=== PATIENT | female | born 1925 | race Caucasian/White ===

== ENCOUNTER → 2016-10-10 | Outpatient (CLI) | payer MEDICARE, OTHER | LOC: MW.CHORTHO 10:00 | PROVIDERS: ATTEND Physician Assistant | DX: M25.551 Pain in right hip (principal); M16.11 Unilateral primary osteoarthritis, right hip | CPT/HCPCS: 99203 ==

== ENCOUNTER → 2016-11-10 | Outpatient (CLI) | payer MEDICARE, OTHER | LOC: MW.CHORTHO 08:00 | PROVIDERS: ATTEND Physician Assistant | DX: M16.11 Unilateral primary osteoarthritis, right hip (principal); M70.61 Trochanteric bursitis, right hip | CPT/HCPCS: 20610; G0463; J1040 ==

== ENCOUNTER 2016-12-02 22:51 | Emergency (ER) | payer MEDICARE, OTHER ==
--- NOTE | 2016-12-02 23:33 | EDM.PDOC ---
ED HPI GENERAL MEDICAL PROBLEM - General Stated Complaint: HIP PAIN Time Seen by Provider: 12/02/16 23:30 Source of Information: Reports: Patient History Limitations: Reports: No Limitations - History of Present Illness INITIAL COMMENTS - FREE TEXT/NARRATIVE: HISTORY AND PHYSICAL: History of present illness: [89-year-old female on Coumadin complaining of right hip soreness. Patient was trying to close a door to her house so she could latch it. In order to do this she bumped her right hip against the door. Her right hip area has been sore since. She is able to ambulate without difficulty. She has no swelling in that area. She does have a history of arthritis. Denies spinal pain and has no other injury] Review of systems: As per history of present illness and below otherwise all systems reviewed and negative. Past medical history: As per history of present illness and as reviewed below otherwise noncontributory. Surgical history: As per history of present illness and as reviewed below otherwise noncontributory. Social history: No reported history of drug or alcohol abuse. Family history: As per history of present illness and as reviewed below otherwise noncontributory. Physical exam: Minimal soft tissue tenderness in the distribution of the right hip no bony tenderness. Stable nontender pelvis. No suprapubic tenderness at the pubic bone area. Normal painless range of motion of bilateral lower extremities with no shortening or external rotation. Soft compartments no ecchymosis HEENT: Normocephalic, atraumatic, pupils normal and symmetrical, supple neck, no meningismus, normal color Lungs: Normal and symmetrical chest wall excursion bilateral with no tachypnea or increased work of breathing, grossly normal chest exam Heart: No tachycardia in triage Abdomen: Normal-appearing, nondistended, no visible mass or asymmetry Pelvis: Normal-appearing Genitourinary: Deferred Rectal exam: Deferred Extremities: Atraumatic, normal use and range of motion, no visible evidence of gross neurovascular compromise Neuro: Awake, alert, oriented. Normal and appropriate mental status. Cranial nerves grossly unremarkable. Motor function normal. Nonfocal neurologic exam. Diagnostics: [] Therapeutics: [] Impression: [] Plan: [Signs and symptoms consistent with mild contusion with no ecchymosis. The patient is on Coumadin no evidence of clinical bleeding or hematoma. She is able to stand airway and ambulate at her baseline on reevaluation after x-rays were negative. No further workup or treatment indicated at this time. Patient and daughter agree with outpatient follow-up and strict return precautions given ] Definitive disposition and diagnosis as appropriate pending reevaluation and review of above. Right Hip Pain Score (Numeric/FACES): 10 - Related Data Allergies Allergy/AdvReac Type Severity Reaction Status Date / Time Influenza Virus Vaccines Allergy Cannot Verified 12/02/16 23:34 Remember morphine Allergy Anaphylactic Verified 12/02/16 23:34 Shock Home Meds: Home Meds Diltiazem [Cardizem] 60 mg PO ONETIME PRN 12/02/16 [History] Hydrochlorothiazide/Lisinopril [Lisinopril-HCTZ 20-25 MG] 1 cap PO DAILY [History] Potassium Chloride 10 meq PO DAILY 12/02/16 [History] Warfarin Sodium [Warfarin Sodium] 0.5 cap PO DAILY 12/02/16 [History] ED ROS GENERAL - Review of Systems Review Of Systems: See Below (History of present illness) ED EXAM, GENERAL - Physical Exam Exam: See Below (History of present illness) Course - Vital Signs Last Recorded V/S: Last Vital Signs Temp 36.9 C 12/02/16 23:23 Pulse 79 12/03/16 01:30 Resp 18 12/03/16 01:30 BP 173/70 H 12/03/16 01:30 Pulse Ox 99 12/03/16 01:30 - Orders/Labs/Meds Orders: Active Orders 24 hr Category Date Time Status Hip Min 2V or 3V w Pelvis Rt [CR] Stat Exams 12/02/16 23:33 Taken Departure - Departure Time of Disposition: 00:46 Disposition: Home, Self-Care 01 Condition: good Clinical Impression: Contusion of right hip, Osteoarthritis of hips, bilateral - Discharge Information Instructions: Hip Pain Referrals: Blue Gomes MD [Primary Care Provider] - Forms: ED Department Discharge Additional Instructions: Have a contusion of your hip. This means a bruise. You may evolve some "black and blue "areas where he bumped her hip against the door your x-rays do not show any fracture however they do show significant osteoarthritis and chronic bony changes of both hips. Because you can walk without difficulty, no further imaging or CAT scan is indicated tonight. If you find you have worsening pain or difficulty ambulating return to the emergency department for CAT scan of your pelvis to rule out an occult or hidden fracture If the area is sore apply an ice pack tonight. Follow-up with your tomorrow and return immediately for new severe or worsening symptoms. Use Tylenol as needed for soreness - My Orders Last 24 Hours: My Active Orders 12/02/16 23:33 Hip Min 2V or 3V w Pelvis Rt [CR] Stat - Assessment/Plan Last 24 Hours: My Active Orders 12/02/16 23:33 Hip Min 2V or 3V w Pelvis Rt [CR] Stat
[2016-12-03 02:14] VITALS: BP 173/70
--- NOTE | 2016-12-05 10:34 | CR ---
EXAM DATE: 12/02/16 PATIENT'S AGE: 89 Patient: BABAK IRENE Facility: [place], [place] Site . Site : [id number] Study: XRay Pelvis Right HIP [id number]/10/2017 12:03:27 AM Ordering Physician: Mason Randhawa Final Report: INDICATION: Pelvic and hip pain TECHNIQUE: Pelvis radiograph 1 view Hip radiograph 2 views COMPARISON: 10/04/2016. FINDINGS: Right greater than left hip degenerative changes. No acute fracture. Lower lumbar spine degenerative disk disease. IMPRESSION: 1. No acute fracture in the pelvis or right hip. Severe right hip osteoarthritis. Dictated by Jayjay Rivas MD @ 12/03/2016 12:07:19 AM Dictated by: Jayjay Rivas MD @ 12/03/2016 00:07:26 (Electronic Signature) Report Signed by Proxy. [facility]
== END 2016-12-03 01:30 | disposition home or self-care (01) ==
LOC: MW.ED 22:51
DX: S70.01XA Contusion of right hip, initial encounter (principal); M16.0 Bilateral primary osteoarthritis of hip; Z88.5 Allergy status to narcotic agent; Z88.7 Allergy status to serum and vaccine; Z79.899 Other long term (current) drug therapy; Z79.01 Long term (current) use of anticoagulants; W22.8XXA Striking against or struck by other objects, initial encounter; Y92.009 Unspecified place in unspecified non-institutional (private) residence as the place of occurrence of the external cause
CPT/HCPCS: 73502-26-RT; 73502-RT; 99282; 99283